=== PATIENT | male | born 1965 | race Caucasian/White ===

== ENCOUNTER 2022-07-25 10:13 | Outpatient (REF) | payer OTHER, SELFPAY ==
[2022-07-25 15:20] LABS: TSH reflex Free T4 1.36 uIU/mL (0.32-4.0); Vitamin D 25-OH Total < 3.5 ng/mL (>30)
== END 2022-07-25 10:14 | disposition home or self-care (01) ==
LOC: HO.WFDLDS 10:13
PROVIDERS: Visit Provider Nurse Practitioner Family
DX: Z00.00 Encounter for general adult medical examination without abnormal findings (principal); E55.9 Vitamin D deficiency, unspecified
CPT/HCPCS: 36415; 82306; 84443

== ENCOUNTER 2022-11-14 11:33 | Outpatient (REF) | payer OTHER, SELFPAY ==
[2022-11-14 14:48] LABS: Hematocrit 41.9 % (42.0-52.0); Hemoglobin 14.1 g/dl (14.0-18.0); Mean Corpuscular HGB Conc 33.7 g/dl (31.0-36.0); Mean Corpuscular Hemoglobin 31.7 pg (27.0-33.0); Mean Corpuscular Volume 94.2 fL (80.0-98.0); Mean Platelet Volume 10.8 fL (9.4-12.4); Platelet Count 284 X10*3/uL (160-400); Red Blood Count 4.45 X10*6/uL (4.60-5.80); Red Cell Distribution Width 13.2 % (11.0-16.0); White Blood Count 6.7 X10*3/uL (4.8-10.8)
[2022-11-14 15:43] LABS: Alanine Aminotransferase 18 U/L (0-40); Albumin Level 3.9 g/dL (3.5-5.0); Alkaline Phosphatase 85 U/L (39-117); Anion Gap 13 (12-20); Aspartate Amino Transferase 21 U/L (5-37); B Type Natriuretic Peptide 30 pg/mL (<100); Bilirubin Total 0.3 mg/dL (0.0-1.0); Blood Urea Nitrogen 14 mg/dL (9-16); Calcium 9.5 mg/dL (8.4-10.2); Carbon Dioxide 26 mmol/L (22-29); Chloride 105 mmol/L (96-108); Estimated Glomerular Filt Rate > 60; Glucose Fasting 118 mg/dL (60-99); Sodium 140 mmol/L (135-145); Total Protein 6.8 g/dL (6.5-8.0)
[2022-11-14 16:57] LABS: Vitamin D 25-OH Total 46.5 ng/mL (>30)
== END 2022-11-14 11:34 | disposition home or self-care (01) ==
LOC: HO.WFDLDS 11:33
PROVIDERS: Visit Provider Nurse Practitioner Family
DX: R60.0 Localized edema (principal); E55.9 Vitamin D deficiency, unspecified
CPT/HCPCS: 36415; 80053; 82306; 83880; 85027

== ENCOUNTER 2023-01-11 15:13 | Outpatient (AMB) | payer OTHER, SELFPAY ==
--- NOTE | 2023-01-11 15:17 | MHC.PC.OV ---
Vital Signs 01/11/23 15:20 Height 5 ft 3 in Weight 166 lb 8 oz BMI 29.5 BP 126/68 Blood Pressure Location Rt brachial Position Sitting Respiration 12 Pulse 101 H Pulse Source Pulse Oximeter Temp 97.6 F Temp Source Temporal Artery Scan Pulse Oximetry (%) 99 Oxygen Delivery Method Room Air Intake Visit Reasons: ? CHF Intake Note: Patient states that recently he was in bed watching tv and when he went to get up his legs gave out and he went straight down. Patient would like muscle relaxers represcribed due to his back pack pazin and issues. Fingerprint Technician Required: No Accompanied by: Self / Same As Patient Allergies No Known Allergies Allergy (Verified 01/11/23 15:38) Medication List - Last Reconciled 01/11/23 by Raffi Finney CNP aspirin 81 mg PO DAILY atorvastatin 40 mg PO DAILY buspirone 10 mg PO DAILY 30 days cholecalciferol (vitamin D3) 1,250 mcg PO QWEEK 8 weeks clopidogrel 75 mg PO DAILY 30 days cyclobenzaprine 10 mg PO TID PRN 30 days folic acid 1 mg PO DAILY furosemide 20 mg PO DAILY 7 days lisinopril 10 mg PO DAILY 30 days naproxen 500 mg PO BID PRN 30 days thiamine HCl (vitamin B1) 50 mg PO DAILY Tobacco use date assessed: 11/25/22 Dental Screening Dental Screen Date: 01/11/23 Did you have a dental visit in the last 12 months?: No Did you have a dental problem in the last 6 months where you did not have access to dental care?: No Was dental information given to patient?: Patient has dentist HPI HPI Comments History of Present Illness Details 57 y/o male presents for a follow up visit. He reports continued intermittent pain which is localized the right side of his lower back. He describes the pain as sharp He notes cyclobenzaprine provided the most relief. He admits to taking Naproxen as prescribed. He states she did 4 weeks of PT and stopped due to increased pain with PT. No tingling, numbness, or loss of sensation. He notes he has been smoking a 1 pack of cigarettes daily for the past 30 years. He requests nicotine patch for smoking cessation. He states he cut down on his drinking. He has been drinking 6 beers daily from 30 beers daily. [facility] Medical History (Updated 01/11/23 @ 15:52 by Raffi Finney CNP) Back injury Alcoholism Depression Anxiety Neuropathy Headache Osteoporosis Arthritis Cardiac disease Hypertension Stroke Surgical History No pertinent past surgical history Family History Mother Hypertension Cardiovascular disease Thyroid disorder Breast cancer No family history of mental disorder Father Cardiovascular disease Alcoholism High cholesterol Social History Housing: Apartment Patient Tobacco Use Status: Current everyday Tobacco user Tobacco use type: Cigarette Cigarette Packs Per Day: 1 Cigarettes Per Day: 20 Years Smoked: 30 e-Cigarette/Vaping Use: Currently Using service: Yes Current occupational status: retired and disabled Cognitive needs: No Hearing needs: No Vision needs: Yes Questionnaire Thrive Questionnaire Date Thrive assessed: 06/28/22 ALLEGRA-7 AMB Questionnaire ALLEGRA-7 Date ALLEGRA - 7 assessed: 06/28/22 Source: Developed by Drs. Irvin Solis, Pat Dang, John Khan and colleagues, with an educational ulysses from [employer]. Review of Systems Const Details: Const Denies chills, Denies fatigue, Denies fever(s), Denies headache(s) and Denies weakness ENT Denies dizziness and Denies headache(s) Card Denies chest pain, Denies lightheadedness, Denies dyspnea and Denies other (Palpitations) Resp Denies cough, Denies dyspnea, Denies wheezing and Denies other ( shortness of breath) GI Denies abdominal pain, Denies melena, Denies hematochezia, Denies change in bowel habits, Denies dyspepsia and Denies nausea Denies hematuria and Denies dysuria Musc Reports as per HPI Skin/Breast Denies rash, Denies unusual bruising and Denies wounds Neuro Denies abnormal gait, Denies dizziness, Denies headache(s), Denies memory loss, Denies numbness, Denies Sensory deficit (Neuro), Denies tingling and Denies weakness Psych Denies anxiety, Denies depression, Denies memory loss Endo Denies cold intolerance, Denies fatigue, Denies heat intolerance, Denies polydipsia and Denies polyuria Aller/Immun Denies wheezing Physical exam (Primary Care) Vital Signs: Last Vital Signs Temp 97.6 F 01/11/23 15:20 Pulse 101 H 01/11/23 15:20 Resp 12 01/11/23 15:20 BP 126/68 01/11/23 15:20 Pulse Ox 99 01/11/23 15:20 Oxygen Delivery Method Room Air 01/11/23 15:20 BMI result Body Mass Index 29.5 Tobacco/Smoking Status: Tobacco use Status Tobacco use date assessed 11/25/22 01/11/23 15:18 Patient Tobacco Use Status Current everyday Tobacco 01/11/23 15:18 Tobacco use type Cigarette 01/11/23 15:32 e-Cigarette/Vaping Use Currently Using 01/11/23 15:32 Thrive Assessment: Date of Thrive Assessment Date Thrive assessed 06/28/22 01/11/23 15:18 Const Other: General: no acute distress and well developed Nutritional Appearance: well nourished Orientation/consciousness: patient oriented x3 HENMT Head: Yes normocephalic and Yes atraumatic Eyes General: appearance normal, both eyes and all related structures Pupils: Equal, round and reactive pupils present EOM: EOMs intact bilaterally Resp Effort & Inspection: normal respiratory effort Auscultation: clear to auscultation bilaterally Cardio Rate: regular rate Rhythm: regular rhythm Heart sounds: S1 normal heart sound present, S2 normal heart sound present, no gallops, no murmurs and no rubs GI Palpation (GI): No Abdominal aortic bruit present, Soft to palpation, nontender, No hepatosplenomegaly present and No Rebound tenderness present Auscultation: normal bowel sounds General: Yes no CVA tenderness Back/Spine/Pelvis Back: no CVA tenderness Cervical Spine: cervical ROM normal and No Cervical spine tenderness Thoracic/Lumbar Spine: thoraco-lumbar ROM normal, No pain with thoraco-lumbar ROM, No thoracic spinal tenderness and No lumbar spinal tenderness Tenderness to palpation of the right side of lower back Extrem General: Yes normal to inspection, No edema and No calf tenderness Negative straight leg raise bilaterally Skin General: warm and dry. Normal skin color. Normal skin turgor Lesions: no lesions Rashes: no rashes Trauma: no lacerations or abrasions Wounds: no wounds Nails: normal Neuro General: patient oriented x3, gait normal and no focal neuro deficit Cranial nerves: Yes Equal, round and reactive pupils present Cognition (Neuro): normal cognition Gait exam (Neuro): Normal gait present Sensory Exam: No Sensory deficit (Neuro) Psych Appearance: grossly normal Affect: normal affect Attitude: cooperative Thought process: Normal thought process present Assessment and Plan Assessment & Plan (1) Hypertension: Code(s): I10 - Essential (primary) hypertension Qualifiers: Hypertension type: primary hypertension Qualified Code(s): I10 - Essential (primary) hypertension Plan: Blood pressure is 126/68, within goal of less than 140/90 Continue with current treatment regimen Low-sodium diet encouraged Follow-up in 1 month for complete physical exam Return sooner with symptoms or concerns Verbalized understanding and agreed with treatment plan. Recent lab results were unremarkable. (2) Back pain: Code(s): M54.9 - Dorsalgia, unspecified Qualifiers: Back pain laterality: right Back pain location: low back pain Plan: Reports ongoing intermittent right-sided low back pain. No tingling or numbness Tenderness to palpation of the right side of lower back Naproxen and cyclobenzaprine as prescribed Cold/warm compresses, and stretching encouraged Follow-up with worsening or new symptoms Verbalized understanding and agreed with treatment plan. (3) Smoking trying to quit: Code(s): Z72.0 - Tobacco use Plan: He notes he has been smoking a 1 pack of cigarettes daily for the past 30 years. He requests nicotine patch for smoking cessation. Nicotine patch ordered. Use as prescribed Follow-up with symptoms or concerns Verbalized understanding and agreed with treatment plan. (4) Alcohol abuse: Code(s): F10.10 - Alcohol abuse, uncomplicated Plan: He states he cut down on his drinking. He has been drinking 6 beers daily from 30 beers daily. Instructed on the health risks and complications of excessive alcohol consumption Encouraged to cut down more or avoid alcohol intake Declines addiction medicine referral Advised to follow-up if he changes his mind on addiction medicine referral Verbalized understanding and agreed with treatment plan. Medications: New nicotine Apply 21 mh patch qd x 6wk, then apply 14 mg patch qd x 2wk, then apply 7 mg patch qd x 2wk; stop cigarette use at tx onset Apply transdermally every 24 hours; 28 ea 0RF Refilled cyclobenzaprine 10 mg PO TID 30 days PRN 60 tabs 2RF muscle spasm Coding Level of Care Code Est Pt Level 3 (72122) Diagnoses Primary hypertension I10 Hypertension type: primary hypertension Back pain M54.9 Back pain laterality: right Back pain location: low back pain Smoking trying to quit Z72.0 Alcohol abuse F10.10
[2023-01-11 15:20] VITALS: BP 126/68; PULSE 101; RESP 12; TEMP 36.4; O2SAT 99; BMI 29.5
== END 2023-01-11 15:50 | disposition home or self-care (01) ==
PROVIDERS: PCP Nurse Practitioner Family; Visit Provider Nurse Practitioner Family
DX: I10 Essential (primary) hypertension (principal); M54.9 Dorsalgia, unspecified; Z72.0 Tobacco use; F10.10 Alcohol abuse, uncomplicated
CPT/HCPCS: 99213

== ENCOUNTER 2023-05-08 08:35 | Outpatient (AMB) | payer OTHER, SELFPAY ==
[2023-05-08 08:37] VITALS: BP 132/70; PULSE 93; RESP 13; TEMP 36.3; O2SAT 96; BMI 31.3
--- NOTE | 2023-05-08 08:37 | MHC.PC.OV ---
Vital Signs 05/08/23 08:37 Height 5 ft 3 in Weight 176 lb 8 oz BMI 31.3 BP 132/70 Blood Pressure Location Rt brachial Position Sitting Respiration 13 Pulse 93 Pulse Source Pulse Oximeter Temp 97.3 F Temp Source Temporal Artery Scan Pulse Oximetry (%) 96 Oxygen Delivery Method Room Air Intake Visit Reasons: PE Intake Note: Patient would like to get warts on hand removed. Patient needs new script sent in for cyclobenzaprine. Train Operator Required: No Accompanied by: Self / Same As Patient Allergies No Known Allergies Allergy (Verified 05/08/23 08:55) Medication List - Last Reconciled 05/08/23 by Raffi Finney CNP aspirin 81 mg PO DAILY atorvastatin 40 mg PO DAILY buspirone 10 mg PO DAILY 30 days cholecalciferol (vitamin D3) 1,250 mcg PO QWEEK 8 weeks clopidogrel 75 mg PO DAILY 30 days cyclobenzaprine 10 mg PO TID PRN 30 days folic acid 1 mg PO DAILY furosemide 20 mg PO DAILY 7 days lisinopril 10 mg PO DAILY 30 days naproxen 500 mg PO BID PRN 30 days nicotine Apply 21 mh patch qd x 6wk, then apply 14 mg patch qd x 2wk, then apply 7 mg patch qd x 2wk; stop cigarette use at tx onset Apply transdermally every 24 hours; thiamine HCl (vitamin B1) 50 mg PO DAILY Tobacco use date assessed: 05/08/23 Dental Screening Dental Screen Date: 05/08/23 Did you have a dental visit in the last 12 months?: No Did you have a dental problem in the last 6 months where you did not have access to dental care?: No Was dental information given to patient?: Patient has dentist HPI HPI Comments History of Present Illness Details 57-year-old male presents for an extended physical exam He has history of HTN, HLD, right-sided low back pain, tobacco dependence, alcohol abuse, alcohol withdrawal seizure, polysubstance abuse, anxiety, and depression He admits to taking his medication as prescribed without adverse reactions He reports continued persistent right-sided low back pain which waxes and wanes. He notes that he had PT a couple of months ago with worsened symptoms. He has not been evaluated by ortho He reports warts to his left thumb and tip of his left 3rd and 4th digits which has been presents for the past 5 years. He wants the warts to be removed Reports significant anxiety and depression which he attributes to not physically being able to do what he used to do. He notes I am not younger anymore. He currently smokes a pack of cigarettes daily. He has been smoking for the past 40 years He currently drinks 2 beers once weekly He currently smokes 1 joint or 2 bowls of marijuana once weekly He notes that he has never had a colonoscopy He states he has not been vaccinated for shingles [facility] Medical History (Updated 05/08/23 @ 10:22 by Raffi Finney CNP) Back injury Alcoholism Depression Anxiety Neuropathy Headache Osteoporosis Arthritis Cardiac disease Hypertension Stroke Surgical History No pertinent past surgical history Family History Mother Hypertension Cardiovascular disease Thyroid disorder Breast cancer No family history of mental disorder Father Cardiovascular disease Alcoholism High cholesterol Social History Housing: Apartment Patient Tobacco Use Status: Current everyday Tobacco user Tobacco use type: Cigarette Cigarette Packs Per Day: 1 Cigarettes Per Day: 20 Years Smoked: 30 e-Cigarette/Vaping Use: Former Use service: Yes Current occupational status: disabled Cognitive needs: No Hearing needs: Yes Vision needs: Yes Questionnaire PHQ-9 Over the last 2 weeks, how often have you been bothered by any of the following problems? 1. Little interest or pleasure in doing things: nearly every day 2. Feeling down, depressed, or hopeless: several days 3. Trouble falling or staying asleep, or sleeping too much: nearly every day 4. Feeling tired or having little energy: nearly every day 5. Poor appetite or overeating: nearly every day 6. Feeling bad about yourself - or that you are a failure or have let yourself or your family down: more than half the days 7. Trouble concentrating on things, such as reading the newspaper or watching television: nearly every day 8. Moving or speaking so slowly that other people could have noticed. Or the opposite - being so fidgety or restless that you have been moving around a lot more than usual: nearly every day 9. Thoughts that you would be better off or of hurting yourself in some way: not at all Total score: 21 Depression Screening Interpretation: Positive Depression Screening Follow-up: Existing condition, In treatment and New Medication prescribed Depression Screening Done: Yes 45972 - PHQ-9 Billing: Yes Source: Developed by Drs. Irvin Solis, Pat Dang, John Khan and colleagues, with an educational ulysses from [employer]. Thrive Questionnaire Date Thrive assessed: 05/08/23 I am a: Patient What is your living situation today?: I have a steady place to live Within the past 12 months, did the food you bought not last and you didn't have the money to get more?: Sometimes True Within the past 12 months, did you worry whether your food would run out before you got money to buy more?: Sometimes True Do you have trouble paying for medicines?: No Do you have trouble getting transportation to medical appointments?: Yes Do you have trouble paying your heating and electricity bill?: No Do you have trouble taking care of your child, family member or friend?: No Do you have trouble with day-to-day activities such as bathing, preparing meals, shopping, managing finances, etc.?: No Are you currently unemployed and looking for a job?: No Are you interested in more education?: No Please select the resources that you would like help with: None Currently or been in a relationship where the following occur: no concerns reported AUDIT C Alcohol Use Questionnaire (AUDIT-C) 1. How often do you have a drink containing alcohol?: 2-3 times a week 2. How many drinks containing alcohol do you have on a typical day when you are drinking?: 1 or 2 3. How often do you have six or more drinks on one occasion?: Monthly Total Score: 5 ALLEGRA-7 AMB Questionnaire ALLEGRA-7 Date ALLEGRA - 7 assessed: 05/08/23 Feeling nervous, anxious, or on edge: 2 = More than half the days Not being able to stop or control worryin = More than half the days Worrying too much about different things: 3 = Nearly every day Trouble relaxin = Nearly every day Being so restless that it is hard to sit still: 3 = Nearly every day Becoming easily annoyed or irritable: 2 = More than half the days Feeling afraid as if something awful might happen: 1 = Several days Total ALLEGRA-7 score (0-4 normal; 5-9 mild; 10-14 moderate; 15-21 severe): 16 Source: Developed by Drs. Irvin Solis, Pat Dang, John Khan and colleagues, with an educational ulysses from [employer]. ALLEGRA-7 Assessment Billing ALLEGRA-7 Assessment Tool: ALLEGRA-7 Assessment 90801 Review of Systems Const Details: Denies chills, Denies fatigue, Denies fever(s), Denies headache(s) and Denies weakness HEENT Denies change in vision, Denies dizziness, Denies headache(s), Denies hearing loss, Denies nasal congestion, Denies sinus pain, Denies sinus pressure and Denies sore throat Card Denies chest pain, Denies lightheadedness, Denies dyspnea and Denies other (palpitations) Resp Denies cough, Denies dyspnea and Denies wheezing GI Denies abdominal pain, Denies melena, Denies hematochezia, Denies change in bowel habits, Denies dyspepsia and Denies nausea Denies hematuria and Denies dysuria Musc Denies abnormal gait, Denies myalgias, Denies arthralgias, Denies numbness and Denies tingling Skin/Breast Reports as per HPI Neuro Denies abnormal gait, Denies dizziness, Denies headache(s), Denies memory loss, Denies numbness, Denies Sensory deficit (Neuro), Denies tingling and Denies weakness Psych Reports anxiety, Reports depression and Denies memory loss Endo Denies cold intolerance, Denies fatigue, Denies heat intolerance, Denies polydipsia and Denies polyuria Prince/Lymph Denies easy bleeding and Denies easy bruising Aller/Immun Denies wheezing Physical exam (Primary Care) Vital Signs: Last Vital Signs Temp 97.3 F 05/08/23 08:37 Pulse 93 05/08/23 08:37 Resp 13 05/08/23 08:37 BP 132/70 05/08/23 08:37 Pulse Ox 96 05/08/23 08:37 Oxygen Delivery Method Room Air 05/08/23 08:37 BMI result Body Mass Index 31.3 Tobacco/Smoking Status: Tobacco use Status Tobacco use date assessed 11/25/22 05/08/23 08:51 Patient Tobacco Use Status Current everyday Tobacco 05/08/23 08:51 Tobacco use type Cigarette 05/08/23 08:51 e-Cigarette/Vaping Use Former Use 05/08/23 08:51 PHQ-9: PHQ-9 Score PHQ-9: Total score 21 05/08/23 08:58 Depression Screening Interpretation: Positive Depression Screening Follow-up: Existing condition, In treatment and New Medication prescribed Thrive Assessment: Date of Thrive Assessment Date Thrive assessed 05/08/23 05/08/23 08:51 Currently or been in a relationship where the following occur: no concerns reported Const Other: General: no acute distress, well developed, alert and awake Nutritional Appearance: well nourished Orientation/consciousness: patient oriented x3 HENMT Head: Yes normocephalic and Yes atraumatic Ears: hearing grossly normal bilaterally and TM's normal bilaterally General nose exam: Normal external nose present and Normal nares present Mouth: Normal oral and palatal mucosa present and moist mucous membranes Teeth and gingiva: dentition normal Throat: Yes oropharynx normal Eyes Pupils: Equal, round and reactive pupils present and Pupil accommodation reflex normal EOM: EOMs intact bilaterally Neck Neck: Yes normal visual inspection, Yes no lymphadenopathy and Yes trachea midline Thyroid: Thyroid normal Carotids: no bruits Lymphatic: no lymphadenopathy noted Chest Chest palpation & inspection: normal inspection of the chest Resp Effort & Inspection: normal respiratory effort Auscultation: clear to auscultation bilaterally Cardio Rate: regular rate Rhythm: regular rhythm Heart sounds: S1 normal heart sound present, S2 normal heart sound present, no gallops, no murmurs and no rubs Bruits: no abdominal aortic bruits and no carotid bruits GI Palpation (GI): No Abdominal aortic bruit present, Soft to palpation, nontender, No hepatosplenomegaly present and No Rebound tenderness present Auscultation: normal bowel sounds General: Yes no CVA tenderness Back/Spine/Pelvis Back: no CVA tenderness Cervical Spine: cervical ROM normal and No Cervical spine tenderness Thoracic/Lumbar Spine: thoraco-lumbar ROM normal, No pain with thoraco-lumbar ROM, No thoracic spinal tenderness and No lumbar spinal tenderness Skin General: warm and dry. Normal skin color. Normal skin turgor Lesions: Very dry, calloused skin, consistent with wart to his to his left thumb and tip of left 3rd and 4th digits Rashes: no rashes Trauma: no lacerations or abrasions Wounds: no wounds Nails: normal Neuro General: patient oriented x3, gait normal and CN's II-XI intact bilaterally Cranial nerves: Yes Equal, round and reactive pupils present Cognition (Neuro): normal cognition Gait exam (Neuro): Normal gait present Motor exam (neuro): 5/5 motor strength present throughout Sensory Exam: No Sensory deficit (Neuro) Deep tendon reflexes (DTR's): Right patellar reflex intensity grade: 2+ and Left patellar reflex intensity grade: 2+ Extrem General: Yes normal to inspection, No edema and No calf tenderness Psych Appearance: grossly normal Affect: normal affect Attitude: cooperative Thought process: Normal thought process present Assessment and Plan Assessment & Plan (1) Normal physical examination, routine: Code(s): Z00.00 - Encounter for general adult medical examination without abnormal findings Plan: No significant physical restrictions or limitations noted Continue current treatment regimen Follow-up in 2 weeks for anxiety, depression, and labs review Return sooner with symptoms or concerns Verbalized understanding and agreed with treatment plan (2) Hypertension: Code(s): I10 - Essential (primary) hypertension Qualifiers: Hypertension type: primary hypertension Qualified Code(s): I10 - Essential (primary) hypertension Plan: Blood pressure is 132/70, within goal of less than 130/80 Continue current treatment regimen Low-sodium diet encouraged Will continue to monitor Verbalized understanding and agreed with treatment plan (3) Anxiety and depression: Code(s): F41.9 - Anxiety disorder, unspecified; F32.A - Depression, unspecified Plan: Significant anxiety and depression due to not been able to physically get things done PHQ-9 and ALLEGRA-7 scores revealed severe depression and anxiety Declines referral for psychotherapy Escitalopram ordered. Take as prescribed Continue to take buspirone as prescribed Routine exercise encouraged Follow-up in 2 weeks or return sooner with symptoms or concerns Verbalized understanding and agreed with treatment plan (4) Back pain: Code(s): M54.9 - Dorsalgia, unspecified Qualifiers: Back pain location: low back pain Back pain laterality: right Plan: Chronic right-sided low back pain Thoracic and lumbar spine nontender to palpation Naproxen and cyclobenzaprine as prescribed Warm/cold compresses encouraged Physical therapy was ineffective Referred to orthopedics Follow-up with worsening or new symptoms Verbalized understanding and agreed with treatment plan (5) Prediabetes: Code(s): R73.03 - Prediabetes Plan: Last A1c early last year was 5.8% Healthy diet and routine exercise encouraged Will recheck A1c Advised to get blood work done before his next visit. Will review results and make changes as needed Verbalized understanding and agreed with the treatment plan (6) Smoking greater than 30 pack years: Code(s): F17.210 - Nicotine dependence, cigarettes, uncomplicated Plan: He currently smokes a pack of cigarettes daily. He has been smoking for the past 40 years Instructed on the health risks and complications of cigarette smoking He was not nicotine patch and was unable to stop smoking Smoking cessation encouraged Declines medication treatment or referral for smoking cessation at this time Advised to contact his PCP if he changes his mind on medication or referral for smoking cessation LDCT scan ordered for lung cancer screening Verbalized understanding and agreed with the plan (7) Screening for lung cancer: Code(s): Z12.2 - Encounter for screening for malignant neoplasm of respiratory organs Plan: As above (8) Colon cancer screening: Code(s): Z12.11 - Encounter for screening for malignant neoplasm of colon Plan: He never had a colonoscopy Referred to [facility] [place] Gastroenterology for colonoscopy (9) Hyperlipidemia: Code(s): E78.5 - Hyperlipidemia, unspecified Qualifiers: Hyperlipidemia type: unspecified Qualified Code(s): E78.5 - Hyperlipidemia, unspecified Plan: He has not had lipid panel blood work done in a while Will recheck lipid panel level. Advised to fast for 10-12 hours, may drink water only, and get blood work done before his next visit Continue to take atorvastatin as prescribed Routine exercise encouraged Follow-up in 2 weeks Verbalized understanding and agreed with treatment plan (10) Wart of hand: Code(s): B07.9 - Viral wart, unspecified Plan: Reports warts to his left thumb and tip of his left 3rd and 4th digits x 5 years Very dry, calloused skin, consistent with wart to his to his left thumb and tip of left 3rd and 4th digits Referred to dermatology (11) Vaccine counseling: Code(s): Z71.85 - Encounter for immunization safety counseling Plan: He has not been vaccinated for shingles Instructed on importance of vaccinations and encouraged to get vaccination for shingles Verbalized understanding and agreed with the plan Orders: Orders PSA, Ultra Sensitive Today Z00.00 - Encounter for general adult medical examination without abnormal findings Lipid Panel Today Z00.00 - Encounter for general adult medical examination without abnormal findings Hemoglobin A1c Today R73.03 - Prediabetes Vitamin D 25-OH Total Today E55.9 - Vitamin D deficiency, unspecified Referrals Orthopedics Referral M54.9 - Dorsalgia, unspecified Dermatology Referral B07.9 - Viral wart, unspecified Medications: New escitalopram oxalate 10 mg PO DAILY 30 tabs 3RF 30 days Changed From atorvastatin 40 mg PO DAILY To atorvastatin 40 mg PO DAILY 90 tabs 1RF 90 days Refilled buspirone 10 mg PO DAILY 30 tabs 3RF 30 days clopidogrel 75 mg PO DAILY 30 tabs 3RF 30 days cyclobenzaprine 10 mg PO TID PRN 60 tabs 2RF muscle spasm 30 days naproxen 500 mg PO BID PRN 60 tabs 1RF pain 30 days lisinopril 10 mg PO DAILY 30 tabs 4RF 30 days Discontinued cholecalciferol (vitamin D3) Discontinued Reason: Doctor's Order 1,250 mcg PO QWEEK 8 caps 0RF 8 weeks nicotine Discontinued Reason: Doctor's Order Apply 21 mh patch qd x 6wk, then apply 14 mg patch qd x 2wk, then apply 7 mg patch qd x 2wk; stop cigarette use at tx onset Apply transdermally every 24 hours; 28 ea 0RF furosemide Discontinued Reason: Patient no longer taking 20 mg PO DAILY 7 days 7 tabs 0RF Coding Level of Care Code Est Pt Level 3 (03758) Est Pt Prev Care 40-64y(51774) Diagnoses Normal physical examination, routine Z00.00 Primary hypertension I10 Hypertension type: primary hypertension Anxiety and depression F41.9; F32.A Back pain M54.9 Back pain location: low back pain Back pain laterality: right Prediabetes R73.03 Smoking greater than 30 pack years F17.210 Screening for lung cancer Z12.2 Colon cancer screening Z12.11 Hyperlipidemia, unspecified hyperlipidemia type E78.5 Hyperlipidemia type: unspecified Wart of hand B07.9 Vaccine counseling Z71.85 Additional Codes ALLEGRA-7 Assessment Billing - ALLEGRA-7 Assessment Tool: ALLEGRA-7 Assessment [id number] ([id number])
== END 2023-05-08 09:22 | disposition home or self-care (01) ==
PROVIDERS: PCP Nurse Practitioner Family; Visit Provider Nurse Practitioner Family
DX: Z00.00 Encounter for general adult medical examination without abnormal findings (principal); I10 Essential (primary) hypertension; F41.9 Anxiety disorder, unspecified; F32.A Depression, unspecified; M54.9 Dorsalgia, unspecified; R73.03 Prediabetes; F17.210 Nicotine dependence, cigarettes, uncomplicated; Z12.2 Encounter for screening for malignant neoplasm of respiratory organs; Z12.11 Encounter for screening for malignant neoplasm of colon; E78.5 Hyperlipidemia, unspecified; B07.9 Viral wart, unspecified; Z71.85 Encounter for immunization safety counseling
CPT/HCPCS: 96127; 99213; 99396

== ENCOUNTER 2023-11-28 12:04 | Outpatient (REF) | payer OTHER, SELFPAY ==
[2023-11-28 17:10] LABS: Estimated Average Glucose 105 mg/dL; Hemoglobin A1c % 5.3 % (<6.0)
[2023-11-28 18:26] LABS: Cholesterol 181 mg/dL (<200); HDL Cholesterol 73 mg/dL (>40); LDL Cholesterol Calculated 98 mg/dL (<100); Triglycerides 52 mg/dL (<150)
[2023-11-28 18:34] LABS: Vitamin D 25-OH Total 20.1 ng/mL (>30)
[2023-12-08 00:43] LABS: PSA, Ultra Sensitive 1.31 ng/mL
== END 2023-11-28 12:05 | disposition home or self-care (01) ==
LOC: HO.WFDLDS 12:04
PROVIDERS: Visit Provider Nurse Practitioner Family
DX: R73.03 Prediabetes (principal); Z00.00 Encounter for general adult medical examination without abnormal findings; E55.9 Vitamin D deficiency, unspecified; Z12.5 Encounter for screening for malignant neoplasm of prostate
CPT/HCPCS: 36415; 80061; 82306; 83036; 84153

== ENCOUNTER 2023-12-12 10:17 | Outpatient (AMB) | payer OTHER, SELFPAY ==
--- NOTE | 2023-12-12 10:19 | MHC.PC.OV ---
Vital Signs 12/12/23 10:26 Height 5 ft 3 in Weight 155 lb BMI 27.5 BP 102/72 Blood Pressure Location Rt brachial Position Sitting Respiration 14 Pulse 88 Pulse Source Pulse Oximeter Pulse Oximetry (%) 93 Oxygen Delivery Method Room Air Intake Visit Reasons: follow up anxiety, depression and labs Intake Note: Follow up anxiety, depression, lab results. Allergies No Known Allergies Allergy (Verified 12/12/23 10:36) Medication List - Last Reconciled 12/12/23 by Raffi Finney CNP aspirin 81 mg PO DAILY atorvastatin 40 mg PO DAILY 90 days buspirone 10 mg PO DAILY 30 days cholecalciferol (vitamin D3) 50 mcg PO DAILY 30 days clopidogrel 75 mg PO DAILY 30 days cyclobenzaprine 10 mg PO TID PRN 30 days escitalopram oxalate 10 mg PO DAILY 30 days folic acid 1 mg PO DAILY lisinopril 10 mg PO DAILY 30 days naproxen 500 mg PO BID PRN 30 days thiamine HCl (vitamin B1) 50 mg PO DAILY Tobacco use date assessed: 12/12/23 Dental Screening Dental Screen Date: 05/08/23 HPI HPI Comments History of Present Illness Details 58-year-old male presents for anxiety, depression, and review of recent lab results follow-up His last office visit was in May 2023 He admits to taking his medications as prescribed without adverse reactions He notes that his anxiety and depressive symptoms are currently alright. He reports passive SI related to how my past could have been different. He denies active SI or suicide plan. He denies HI. He reports chronic constant sharp LBP. He denies radiation, tingling, numbness, or loss of sensation. He requests refill of cyclobenzaprine and Naproxen. He reports h/o PT for his back pain with worsened symptoms. He states that he had xray, CT, and MR for his lumbar spin at [facility] but does not recall the findings. He notes that he has never been evaluated by ortho for his back pain. [facility] Medical History (Updated 09/19/23 @ 10:57 by Chuyita Jane PA-C) History of CVA (cerebrovascular accident) History of seizure due to alcohol withdrawal Alcohol abuse PFO (patent foramen ovale) Hypertension Hyperlipidemia Nicotine dependence, cigarettes, uncomplicated Back injury Depression Anxiety Neuropathy Headache Osteoporosis Arthritis Surgical History (Updated 09/19/23 @ 10:58 by Chuyita Jane PA-C) History of surgery on wrist History of ankle surgery Family History Mother Hypertension Cardiovascular disease Thyroid disorder Breast cancer No family history of mental disorder Father Cardiovascular disease Alcoholism High cholesterol Social History Housing: Apartment Patient Tobacco Use Status: Current everyday Tobacco user Tobacco use type: Cigarette Cigarette Packs Per Day: 1 Cigarettes Per Day: 20 Years Smoked: 40 e-Cigarette/Vaping Use: Former Use service: Yes Current occupational status: disabled Cognitive needs: No Hearing needs: Yes Vision needs: Yes Questionnaire PHQ-9 Over the last 2 weeks, how often have you been bothered by any of the following problems? 1. Little interest or pleasure in doing things: more than half the days 2. Feeling down, depressed, or hopeless: more than half the days 3. Trouble falling or staying asleep, or sleeping too much: more than half the days 4. Feeling tired or having little energy: several days 5. Poor appetite or overeating: several days 6. Feeling bad about yourself - or that you are a failure or have let yourself or your family down: several days 7. Trouble concentrating on things, such as reading the newspaper or watching television: several days 8. Moving or speaking so slowly that other people could have noticed. Or the opposite - being so fidgety or restless that you have been moving around a lot more than usual: nearly every day 9. Thoughts that you would be better off or of hurting yourself in some way: several days Total score: 14 Depression Screening Interpretation: Positive Depression Screening Follow-up: Existing condition and In treatment Depression Screening Done: Yes 49418 - PHQ-9 Billing: Yes Source: Developed by Drs. Irvin Solis, Pat Dang, John Khan and colleagues, with an educational ulysses from [employer]. Thrive Questionnaire Date Thrive assessed: 05/08/23 ALLEGRA-7 AMB Questionnaire ALLEGRA-7 Date ALLEGRA - 7 assessed: 12/12/23 Feeling nervous, anxious, or on edge: 1 = Several days Not being able to stop or control worryin = Several days Worrying too much about different things: 1 = Several days Trouble relaxin = More than half the days Being so restless that it is hard to sit still: 1 = Several days Becoming easily annoyed or irritable: 1 = Several days Feeling afraid as if something awful might happen: 1 = Several days Total ALLEGRA-7 score (0-4 normal; 5-9 mild; 10-14 moderate; 15-21 severe): 8 Source: Developed by Drs. Irvin Solis, Pat Dang, John Khan and colleagues, with an educational ulysses from [employer]. ALLEGRA-7 Assessment Billing ALLEGRA-7 Assessment Tool: ALLEGRA-7 Assessment [id number] Review of Systems Const Details: Const Denies chills, Denies fatigue, Denies fever(s), Denies headache(s) and Denies weakness ENT Denies dizziness and Denies headache(s) Card Denies chest pain, Denies lightheadedness, Denies dyspnea and Denies other (Palpitations) Resp Denies cough, Denies dyspnea, Denies wheezing and Denies other ( shortness of breath) GI Denies abdominal pain, Denies melena, Denies hematochezia, Denies change in bowel habits, Denies dyspepsia and Denies nausea Denies hematuria and Denies dysuria Musc Reports as per HPI Skin/Breast Denies rash, Denies unusual bruising and Denies wounds Neuro Denies abnormal gait, Denies dizziness, Denies headache(s), Denies memory loss, Denies numbness, Denies Sensory deficit (Neuro), Denies tingling and Denies weakness Psych Denies anxiety, Denies depression, Denies memory loss Endo Denies cold intolerance, Denies fatigue, Denies heat intolerance, Denies polydipsia and Denies polyuria Aller/Immun Denies wheezing Physical exam (Primary Care) Tobacco/Smoking Status: Tobacco use Status Tobacco use date assessed 05/08/23 12/12/23 10:21 Patient Tobacco Use Status Current everyday Tobacco 12/12/23 10:21 Tobacco use type Cigarette 12/12/23 10:21 e-Cigarette/Vaping Use Former Use 12/12/23 10:21 Depression Screening Interpretation: Positive Depression Screening Follow-up: Existing condition and In treatment Thrive Assessment: Date of Thrive Assessment Date Thrive assessed 05/08/23 12/12/23 10:21 Const Other: General: no acute distress and well developed Nutritional Appearance: well nourished Orientation/consciousness: patient oriented x3 HENMT Head: Yes normocephalic and Yes atraumatic Eyes General: appearance normal, both eyes and all related structures Pupils: Equal, round and reactive pupils present EOM: EOMs intact bilaterally Resp Effort & Inspection: normal respiratory effort Auscultation: clear to auscultation bilaterally Cardio Rate: regular rate Rhythm: regular rhythm Heart sounds: S1 normal heart sound present, S2 normal heart sound present, no gallops, no murmurs and no rubs GI Palpation (GI): No Abdominal aortic bruit present, Soft to palpation, nontender, No hepatosplenomegaly present and No Rebound tenderness present Auscultation: normal bowel sounds General: Yes no CVA tenderness Back/Spine/Pelvis Back: no CVA tenderness Cervical Spine: cervical ROM normal and No Cervical spine tenderness Thoracic/Lumbar Spine: thoraco-lumbar ROM normal, No pain with thoraco-lumbar ROM, No thoracic spinal tenderness and No lumbar spinal tenderness Extrem General: Yes normal to inspection, No edema and No calf tenderness Skin General: warm and dry. Normal skin color. Normal skin turgor Neuro General: patient oriented x3, gait normal and no focal neuro deficit Cranial nerves: Yes Equal, round and reactive pupils present Cognition (Neuro): normal cognition Gait exam (Neuro): Normal gait present Sensory Exam: No Sensory deficit (Neuro) Psych Appearance: grossly normal Affect: normal affect Attitude: cooperative Thought process: Normal thought process present Assessment and Plan Assessment & Plan (1) Anxiety and depression: Code(s): F41.9 - Anxiety disorder, unspecified; F32.A - Depression, unspecified Plan: No acute symptoms PHQ-9 and ALLEGRA-7 scores revealed moderate depression and mild anxiety respectively Continue current treatment regimen Routine exercise encouraged Follow-up in 3 months or sooner with symptoms or concerns Verbalized understanding and agreed with treatment plan (2) Prediabetes: Code(s): R73.03 - Prediabetes Plan: Recent lab results on 11/28/2023 reviewed with the patient A1c was 5.3% Healthy diet and routine exercise encouraged Will monitor A1c annually or if clinically indicated Verbalized understanding and agreed with the plan (3) Hyperlipidemia: Code(s): E78.5 - Hyperlipidemia, unspecified Qualifiers: Hyperlipidemia type: unspecified Qualified Code(s): E78.5 - Hyperlipidemia, unspecified Plan: Recent lipid panel levels were normal, triglycerides 52, total cholesterol 181, LDL 98, and HDL 73 Continue to take atorvastatin 40 mg daily Advised to limit foods high in saturated fat and avoid foods high in trans fat Routine exercise encouraged Will recheck lipid panel level. Advised to fast for 10-12 hours, may drink water only, and get blood work done before his next visit Verbalized understanding and agreed with treatment plan (4) Hypertension: Code(s): I10 - Essential (primary) hypertension Qualifiers: Hypertension type: primary hypertension Qualified Code(s): I10 - Essential (primary) hypertension Plan: His blood pressure is 102/70, within goal of less than 140/90 Continue current treatment regimen Low-sodium diet encouraged Follow-up in 3 months Verbalized understanding and agreed with the treatment plan (5) Vitamin D deficiency: Code(s): E55.9 - Vitamin D deficiency, unspecified Plan: Recent vitamin-D level was low, 20.1 Will start vitamin D3 2000 units daily. Advised to take as prescribed. Instructed on the risks, benefits, and potential adverse reactions of the medication Encouraged to get vitamin-D level blood work done before his next visit Follow-up in 3 months Verbalized understanding and agreed with the treatment plan (6) Back pain: Code(s): M54.9 - Dorsalgia, unspecified Qualifiers: Back pain location: low back pain Back pain laterality: right Plan: Chronic pain to his lumbar spine Lumbar spine nontender to palpation Naproxen and cyclobenzaprine refill sent Warm/cool compresses encouraged Will request imaging of the lumbar spine from [facility] Follow-up with worsening or new symptoms Verbalized understanding and agreed with the treatment plan Orders: Orders Vitamin D 25-OH Total 3 Months E55.9 - Vitamin D deficiency, unspecified Lipid Panel 3 Months E78.5 - Hyperlipidemia, unspecified Medications: New cholecalciferol (vitamin D3) 50 mcg PO DAILY 30 days 30 tabs 3RF Changed From cyclobenzaprine 10 mg PO TID 30 days PRN 60 tabs 2RF muscle spasm To cyclobenzaprine 10 mg PO BID 30 days PRN 60 tabs 2RF muscle spasm Refilled naproxen 500 mg PO BID 30 days PRN 60 tabs 1RF pain escitalopram oxalate 10 mg PO DAILY 30 days 30 tabs 3RF Coding Level of Care Code Est Pt Level 4 (13109) Complex EM visit Add On G2211 Diagnoses Anxiety and depression F41.9; F32.A Prediabetes R73.03 Hyperlipidemia, unspecified hyperlipidemia type E78.5 Hyperlipidemia type: unspecified Primary hypertension I10 Hypertension type: primary hypertension Vitamin D deficiency E55.9 Back pain M54.9 Back pain location: low back pain Back pain laterality: right Additional Codes ALLEGRA-7 Assessment Billing - ALLEGRA-7 Assessment Tool: ALLEGRA-7 Assessment [id number] ([id number])
[2023-12-12 10:26] VITALS: BP 102/72; PULSE 88; RESP 14; O2SAT 93; BMI 27.5
== END 2023-12-12 10:53 | disposition home or self-care (01) ==
PROVIDERS: PCP Nurse Practitioner Family; Visit Provider Nurse Practitioner Family
DX: F41.9 Anxiety disorder, unspecified (principal); F32.A Depression, unspecified; R73.03 Prediabetes; E78.5 Hyperlipidemia, unspecified; I10 Essential (primary) hypertension; E55.9 Vitamin D deficiency, unspecified; M54.9 Dorsalgia, unspecified
CPT/HCPCS: 96127; 99214; G2211

== ENCOUNTER 2024-09-30 11:59 | Outpatient (AMB) | payer MEDICARE, MEDICAID, SELFPAY ==
--- NOTE | 2024-09-30 12:01 | A.OFFPC_ITS ---
Vital Signs 09/30/24 12:06 Height 5 ft 3 in Weight 171 lb BMI 30.3 BP 127/72 Blood Pressure Location Lt brachial Position Sitting Respiration 16 Pulse 113 H Pulse Source Pulse Oximeter Temp 97.5 F Temp Source Oral Pulse Oximetry (%) 98 Oxygen Delivery Method Room Air Intake Visit Reasons: CPE Intake Note: patient here for CPE Administrative Services Assistant Required: No Allergies No Known Allergies Allergy (Verified 09/30/24 12:30) Medication List - Last Reconciled 09/30/24 by Raffi Finney CNP aspirin 81 mg PO DAILY atorvastatin 40 mg PO DAILY 90 days buspirone 10 mg PO DAILY 30 days cholecalciferol (vitamin D3) 50 mcg PO DAILY 30 days clopidogrel 75 mg PO DAILY 30 days cyclobenzaprine 10 mg PO BID PRN 30 days escitalopram oxalate 10 mg PO DAILY 30 days folic acid 1 mg PO DAILY lisinopril 10 mg PO DAILY 30 days naproxen 500 mg PO BID PRN 30 days thiamine HCl (vitamin B1) 50 mg PO DAILY Tobacco use date assessed: 09/30/24 Dental Screening Dental Screen Date: 09/30/24 Did you have a dental visit in the last 12 months?: No Did you have a dental problem in the last 6 months where you did not have access to dental care?: No Was dental information given to patient?: Patient has dentist HPI HPI Comments History of Present Illness Details 58-year-old male presents for an extende d physical exam. He notes that he has been taking Lisinopril, cyclobenzaprine, and escitalopram as prescribed without adverse reactions. He reports anxiety and depressive symptoms. He notes that i have no patience. I worry about stuff too much. He notes that his symptoms waxes and wanes, worse when he does not have money and due to family issues. He reports passive SI which is attributes to being unemployed for the past 5 years, does not have enough money, and does not feel like the man he use to be. He survives from his disability checks. He denies active SI and states he does not have a plan. Acute issue(s) - None Past Medical History - Hypertension, hyperlipidemia, prediabe darrian, vitamin-D deficiency, CVA, low back pain, myopia and hyperopia (wears glasses), anxiety, depression, nicotine dependence, alcohol use disorder, alcohol withdrawal seizures, polysubstance abuse Social History - Smokes a pack of cigarettes daily and has been smoking x 30 yrs. Vapes nicotine occasionally. Drinks 18 pack of beer daily, have been drinking excessively for the past 20 yrs. He smokes and inhale crack cocaine and methamphetamine monthly, smokes cannabis 3 joints of cannabis weekly. He has been using crack cocaine x 30 years, methamphetamine x 5 years, and cannabis x 30-40 years - Has been making healthy dietary choice s. Exercises routinely. Reports poor sleep for the past 2 years, sleeps an average of 2-3 hours, snores, never had a sleep study Health maintenance - Last eye exam was a year ago with [facility]. New referral made - Last dental visit was over a year ago; encouraged to schedule an appointment with his dentist for routine dental care - Last Tdap was in 10/20/2023 - Has not been vaccinated for the flu ; declines vaccination - He has not been vaccinated for shingle s. Encouraged to get vaccinated for sh ingles. He may get the vaccines from the local pharmacy - He has never had a colonoscopy. Refer red to [facility] Medical History (Updated 09/30/24 @ 13:15 by Raffi Finney CNP) History of CVA (cerebrovascular accident) History of seizure due to alcohol withdrawal Alcohol abuse PFO (patent foramen ovale) Hypertension Hyperlipidemia Nicotine dependence, cigarettes, uncomplicated Back injury Depression Anxiety Neuropathy Headache Osteoporosis Arthritis Surgical History History of surgery on wrist History of ankle surgery Family History Mother Hypertension Cardiovascular disease Thyroid disorder Breast cancer No family history of mental disorder Father Cardiovascular disease Alcoholism High cholesterol Social History Housing: Apartment Patient Tobacco Use Status: Current everyday Tobacco user Tobacco use type: Cigarette Cigarette Packs Per Day: 1 Cigarettes Per Day: 20 Years Smoked: 40 e-Cigarette/Vaping Use: Former Use Second Hand Smoke Exposure: Yes service: Yes Current occupational status: disabled Current occupational exposures/hazards: No Cognitive needs: No Hearing needs: Yes Vision needs: Yes Questionnaire PHQ-9 Over the last 2 weeks, how often have you been bothered by any of the following problems? 1. Little interest or pleasure in doing things: more than half the days 2. Feeling down, depressed, or hopeless: several days 3. Trouble falling or staying asleep, or sleeping too much: more than half the days 4. Feeling tired or having little energy: nearly every day 5. Poor appetite or overeating: more than half the days 6. Feeling bad about yourself - or that you are a failure or have let yourself or your family down: more than half the days 7. Trouble concentrating on things, such as reading the newspaper or watching television: more than half the days 8. Moving or speaking so slowly that other people could have noticed. Or the opposite - being so fidgety or restless that you have been moving around a lot more than usual: several days 9. Thoughts that you would be better off or of hurting yourself in some way: several days Total score: 16 Depression Screening Interpretation: Positive Depression Screening Follow-up: Existing condition, In treatment and Change in Medication Depression Screening Done: Yes 70765 - PHQ-9 Billing: Yes Source: Developed by Drs. Irvin Solis, Pat Dang, John Khan and colleagues, with an educational ulysses from [employer]. Thrive Questionnaire Date Thrive assessed: 09/30/24 I am a: Patient What is your living situation today?: I have a steady place to live Within the past 12 months, did the food you bought not last and you didn't have the money to get more?: Often true Within the past 12 months, did you worry whether your food would run out before you got money to buy more?: Sometimes True Do you have trouble paying for medicines?: Yes Do you have trouble getting transportation to medical appointments?: Yes Do you have trouble paying your heating and electricity bill?: Yes Do you have trouble taking care of your child, family member or friend?: No Do you have trouble with day-to-day activities such as bathing, preparing meals, shopping, managing finances, etc.?: Yes Are you currently unemployed and looking for a job?: No Are you interested in more education?: No Please select the resources that you would like help with: None Currently or been in a relationship where the following occur: No concerns reported THRIVE Score: 4 AUDIT C Alcohol Use Questionnaire (AUDIT-C) 1. How often do you have a drink containing alcohol?: 4 or more times a week 2. How many drinks containing alcohol do you have on a typical day when you are drinking?: 10 or more 3. How often do you have six or more drinks on one occasion?: Daily or almost daily Total Score: 12 Score Reviewed/Action Taken: Yes ALLEGRA-7 AMB Questionnaire ALLEGRA-7 Date ALLEGRA - 7 assessed: 09/30/24 Feeling nervous, anxious, or on edge: 1 = Several days Not being able to stop or control worryin = Several days Worrying too much about different things: 1 = Several days Trouble relaxin = Several days Being so restless that it is hard to sit still: 1 = Several days Becoming easily annoyed or irritable: 2 = More than half the days Feeling afraid as if something awful might happen: 1 = Several days Total ALLEGRA-7 score (0-4 normal; 5-9 mild; 10-14 moderate; 15-21 severe): 8 Source: Developed by Drs. Irvin Solis, Pat Dang, John Khan and colleagues, with an educational ulysses from [employer]. ALLEGRA-7 Assessment Billing ALLEGRA-7 Assessment Tool: ALLEGRA-7 Assessment 94729 Review of Systems Const Details: Denies chills, Denies fatigue, Denies fever(s), Denies headache(s) and Denies weakness HEENT Denies change in vision, Denies dizziness, Denies headache(s), Denies hearing loss, Denies nasal congestion, Denies sinus pain, Denies sinus pressure and Denies sore throat Card Denies chest pain, Denies lightheadedness, Denies dyspnea and Denies other (palpitations) Resp Denies cough, Denies dyspnea and Denies wheezing GI Denies abdominal pain, Denies melena, Denies hematochezia, Denies change in bowel habits, Denies dyspepsia and Denies nausea Denies hematuria and Denies dysuria Musc Denies abnormal gait, Denies myalgias, Denies arthralgias, Denies numbness and Denies tingling Skin/Breast Denies rash, Denies unusual bruising and Denies wounds Neuro Denies abnormal gait, Denies dizziness, Denies headache(s), Denies memory loss, Denies numbness, Denies Sensory deficit (Neuro), Denies tingling and Denies weakness Psych Reports anxiety, Reports depression and Denies memory loss Endo Denies cold intolerance, Denies fatigue, Denies heat intolerance, Denies polydipsia and Denies polyuria Prince/Lymph Denies easy bleeding and Denies easy bruising Aller/Immun Denies wheezing Physical exam (Primary Care) Vital Signs: Last Vital Signs Temp 97.5 F 09/30/24 12:06 Pulse 113 H 09/30/24 12:06 Resp 16 09/30/24 12:06 BP 127/72 09/30/24 12:06 Pulse Ox 98 09/30/24 12:06 Oxygen Delivery Method Room Air 09/30/24 12:06 BMI result Body Mass Index 30.3 Tobacco/Smoking Status: Tobacco use Status Tobacco use date assessed 09/30/24 09/30/24 12:16 Patient Tobacco Use Status Current everyday Tobacco 09/30/24 12:02 Tobacco use type Cigarette 09/30/24 12:02 e-Cigarette/Vaping Use Former Use 09/30/24 12:02 PHQ-9: PHQ-9 Score PHQ-9: Total score 16 09/30/24 15:12 Depression Screening Interpretation: Positive Depression Screening Follow-up: Existing condition, In treatment and Change in Medication Thrive Assessment: Date of Thrive Assessment Date Thrive assessed 09/30/24 09/30/24 12:16 Currently or been in a relationship where the following occur: No concerns reported Const Other: General: no acute distress, well developed, alert and awake Nutritional Appearance: well nourished Orientation/consciousness: patient oriented x3 HENMT Head: Yes normocephalic and Yes atraumatic Ears: hearing grossly normal bilaterally and TM's normal bilaterally General nose exam: Normal external nose present and Normal nares present Mouth: Normal oral and palatal mucosa present and moist mucous membranes Teeth and gingiva: dentition normal Throat: Yes oropharynx normal Eyes Pupils: Equal, round and reactive pupils present and Pupil accommodation reflex normal EOM: EOMs intact bilaterally Neck Neck: Yes normal visual inspection, Yes no lymphadenopathy and Yes trachea midline Thyroid: Thyroid normal Carotids: no bruits Lymphatic: no lymphadenopathy noted Chest Chest palpation & inspection: normal inspection of the chest Resp Effort & Inspection: normal respiratory effort Auscultation: clear to auscultation bilaterally Cardio Rate: regular rate Rhythm: regular rhythm Heart sounds: S1 normal heart sound present, S2 normal heart sound present, no gallops, no murmurs and no rubs Bruits: no abdominal aortic bruits and no carotid bruits GI Palpation (GI): No Abdominal aortic bruit present, Soft to palpation, nontender, No hepatosplenomegaly present and No Rebound tenderness present Auscultation: normal bowel sounds General: Yes no CVA tenderness Back/Spine/Pelvis Back: no CVA tenderness Cervical Spine: cervical ROM normal and No Cervical spine tenderness Thoracic/Lumbar Spine: thoraco-lumbar ROM normal, No pain with thoraco-lumbar ROM, No thoracic spinal tenderness and No lumbar spinal tenderness Skin General: warm and dry. Normal skin color. Normal skin turgor Lesions: no lesions Rashes: no rashes Trauma: no lacerations or abrasions Wounds: no wounds Nails: normal Neuro General: patient oriented x3, gait normal and CN's II-XI intact bilaterally Cranial nerves: Yes Equal, round and reactive pupils present Cognition (Neuro): normal cognition Gait exam (Neuro): Normal gait present Motor exam (neuro): 5/5 motor strength present throughout Sensory Exam: No Sensory deficit (Neuro) Deep tendon reflexes (DTR's): Right patellar reflex intensity grade: 2+ and Left patellar reflex intensity grade: 2+ Extrem General: Yes normal to inspection, No edema and No calf tenderness Psych Appearance: grossly normal Affect: normal affect Attitude: cooperative Thought process: Normal thought process present Coding Level of Care Code Est Pt Level 5 (84645) Est Pt Prev Care 40-64y(35200) Diagnoses Normal physical examination, routine Z00.00 Primary hypertension I10 Hypertension type: primary hypertension Insomnia G47.00 Snoring R06.83 Alcohol use disorder F10.90 Polysubstance use disorder F19.90 Nicotine dependence F17.200 Anxiety and depression F41.9; F32.A Colon cancer screening Z12.11 Myopia H52.10 Hyperopia H52.00 Vaccine counseling Z71.85 Laboratory tests ordered as part of a complete physical exam (CPE) Z00.00 Additional Codes ALLEGRA-7 Assessment Billing - ALLEGRA-7 Assessment Tool: ALLEGRA-7 Assessment 31876 ([id number]) PHQ-9 - 32880 - PHQ-9 Billing: Yes ([id number]) Time Spent (min) 75 Assessment & Plan Assessment & Plan (1) Normal physical examination, routine: Code(s): Z00.00 - Encounter for general adult medical examination without abnormal findings Category: Medical Plan: No significant functional limitations noted. Healthy diet and routine exercise encouraged. Continue current treatment regimen. Perform lab work and follow-up for telehealth visit in 2-3 weeks. Return sooner with symptoms or concerns. Verbalized understanding and agreed with the treatment plan. (2) Hypertension: Code(s): I10 - Essential (primary) hypertension Category: Medical Qualifiers: Hypertension type: primary hypertension Qualified Code(s): I10 - Essential (primary) hypertension Plan: Blood pressure is 127/72, within goal of less than 140/90. Continue current treatment regimen. Low-sodium diet encouraged. Will continue to monitor. Verbalized understanding and agreed with the plan. (3) Insomnia: Code(s): G47.00 - Insomnia, unspecified Category: Medical Plan: Reports poor sleep for the past 2 years, sleeps an average of 2-3 hours, snores, never had a sleep study. Instructed on sleep hygiene. May take melatonin as needed. Referred to [facility] for a sleep study. Follow-up as needed. Verbalized understanding and agreed with the plan. (4) Snoring: Code(s): R06.83 - Snoring Category: Medical Plan: Plan as above. (5) Alcohol use disorder: Code(s): F10.90 - Alcohol use, unspecified, uncomplicated Category: Medical Plan: He drinks 18 pack of beer daily, and have been drinking excessively for the past 20 years. Instructed on the health risks and complications of excessive alcohol intake and encouraged to stop or limit his alcohol intake. No more than 2 drinks daily or 5 weekly. Referred to [facility] as requested for alcohol use disorder and polysubstance use disorder. Follow-up as needed. Verbalized understanding and agreed with the plan. (6) Polysubstance use disorder: Code(s): F19.90 - Other psychoactive substance use, unspecified, uncomplicated Category: Medical Plan: He smokes and inhale crack cocaine and methamphetamine monthly, smokes cannabis 3 joints of cannabis weekly. He has been using crack cocaine x 30 years, methamphetamine x 5 years, and cannabis x 30-40 years. Instructed on the health risks and complications of illicit drug use and cessation encouraged. Plan as above. (7) Nicotine dependence: Code(s): F17.200 - Nicotine dependence, unspecified, uncomplicated Category: Medical Plan: He smokes a pack of cigarettes daily and has been smoking for the past 30 years. He also vapes nicotine occasionally. Instructed on the health risks and complications of smoking and vaping nicotine; cessation encouraged. Nicotine patch ordered as requested; advised to use as prescribed. Instructed on the risks, benefits, and potential adverse reactions of the medication. Follow-up with symptoms or concerns. Verbalized understanding and agreed with the plan. (8) Anxiety and depression: Code(s): F41.9 - Anxiety disorder, unspecified; F32.A - Depression, unspecified Category: Medical Plan: He reports anxiety and depressive symptoms. He notes that i have no patience. I worry about stuff too much. He notes that his symptoms waxes and wanes, worse when he does not have money and due to family issues. He reports passive SI which is attributes to being unemployed for the past 5 years, does not have enough money, and does not feel like the man he use to be. He survives from his disability checks. He denies active SI and states he does not have a plan. PHQ-9 and ALLEGRA-7 scores revealed moderately severe depression and mild anxiety respectively. Will increase escitalopram to 20 mg daily; advised to take as prescribed. Will restart buspirone to target anxiety; advised to take as prescribed. Instructed on the risks, benefits, and potential adverse reactions of the medications. Follow-up in 2 weeks or sooner with worsening or new symptoms. Verbalized understanding and agreed with treatment plan. (9) Colon cancer screening: Code(s): Z12.11 - Encounter for screening for malignant neoplasm of colon Category: Medical Plan: He has never had a colonoscopy. Referred to [facility] for colonoscopy. (10) Myopia: Code(s): H52.10 - Myopia, unspecified eye Category: Medical Plan: Last eye exam was a year ago with [facility]. New ophthalmology referral made. (11) Hyperopia: Code(s): H52.00 - Hypermetropia, unspecified eye Category: Medical Plan: Plan as above. (12) Vaccine counseling: Code(s): Z71.85 - Encounter for immunization safety counseling Category: Medical Plan: He has not been vaccinated for shingles. Instructed on the importance of vaccinated for singles and and encouraged to get vaccinated for shingles. He may get the vaccines from the local pharmacy. Verbalized understanding and agreed with treatment plan. (13) Laboratory tests ordered as part of a complete physical exam (CPE): Code(s): Z00.00 - Encounter for general adult medical examination without abnormal findings Category: Medical Plan: Fasting labs ordered as part of a complete physical exam. Advised to fast for at least 10 hours before getting labs drawn. May drink water Verbalized understanding and agreed with treatment plan. Plan Total time spent caring for the patient today was 75 minutes. Time with patient was 50 minutes. 25 minutes spent spent before the visit reviewing the chart, and after the visit on documentation, reviewing laboratory results, diagnostic imaging, medications, performing a medically necessary evaluation, counseling on diagnoses, care coordination, ordering appropriate tests, ordering appropriate medications, review of tests performed by other providers, reporting test results with the patient, communication with other healthcare providers. Orders: Referrals Sleep Medicine Referral G47.00 - Insomnia, unspecified, R06.83 - Snoring Addiction Medicine Referral F10.90 - Alcohol use, unspecified, uncomplicated, F19.90 - Other psychoactive substance use, unspecified, uncomplicated Gastroenterology Referral Z12.11 - Encounter for screening for malignant neoplasm of colon Ophthalmology Referral H52.00 - Hypermetropia, unspecified eye, H52.10 - Myopia, unspecified eye Lung Cancer Screening Referral F17.200 - Nicotine dependence, unspecified, uncomplicated Medications: New escitalopram oxalate 20 mg PO DAILY 30 days 30 tabs 3RF nicotine 1 patch transdermal DAILY 6 weeks 42 ea 2RF Changed From aspirin 81 mg PO DAILY To aspirin 81 mg PO DAILY 90 days 90 tabs 3RF From thiamine HCl (vitamin B1) 50 mg PO DAILY To thiamine HCl (vitamin B1) 50 mg (1/2 x 100 mg) PO DAILY 30 days 15 tabs 3RF From folic acid 1 mg PO DAILY To folic acid 1 mg PO DAILY 30 days 30 tabs 3RF Refilled cyclobenzaprine 10 mg PO BID 30 days PRN 60 tabs 2RF muscle spasm atorvastatin 40 mg PO DAILY 90 days 90 tabs 1RF lisinopril 10 mg PO DAILY 30 days 30 tabs 3RF clopidogrel 75 mg PO DAILY 30 days 30 tabs 3RF Discontinued cholecalciferol (vitamin D3) Discontinued Reason: Patient no longer taking 50 mcg PO DAILY 30 days 30 tabs 3RF naproxen Discontinued Reason: Patient no longer taking 500 mg PO BID 30 days PRN 60 tabs 1RF pain escitalopram oxalate Discontinued Reason: Doctor's Order 10 mg PO DAILY 30 days 30 tabs 0RF
[2024-09-30 12:06] VITALS: BP 127/72; PULSE 113; RESP 16; TEMP 36.4; O2SAT 98; BMI 30.3
== END 2024-09-30 13:02 | disposition home or self-care (01) ==
LOC: HO.HMCFM 11:59
PROVIDERS: PCP Nurse Practitioner Family; Visit Provider Nurse Practitioner Family
DX: I10 Essential (primary) hypertension (principal); G47.00 Insomnia, unspecified; R06.83 Snoring; F10.90 Alcohol use, unspecified, uncomplicated; F19.90 Other psychoactive substance use, unspecified, uncomplicated; F17.200 Nicotine dependence, unspecified, uncomplicated; F41.9 Anxiety disorder, unspecified; F32.A Depression, unspecified; Z12.11 Encounter for screening for malignant neoplasm of colon; H52.10 Myopia, unspecified eye; H52.00 Hypermetropia, unspecified eye; Z71.85 Encounter for immunization safety counseling

== ENCOUNTER → 2024-09-30 11:59 | Outpatient (BNVA) | payer MEDICARE, SELFPAY | PROVIDERS: PCP Nurse Practitioner Family; Visit Provider Nurse Practitioner Family | DX: Z00.01 Encounter for general adult medical examination with abnormal findings (principal); I10 Essential (primary) hypertension; G47.00 Insomnia, unspecified; R06.83 Snoring; F10.90 Alcohol use, unspecified, uncomplicated; F41.9 Anxiety disorder, unspecified; F32.A Depression, unspecified; H52.10 Myopia, unspecified eye; H52.00 Hypermetropia, unspecified eye; F17.200 Nicotine dependence, unspecified, uncomplicated; Z71.6 Tobacco abuse counseling | CPT/HCPCS: 96127; 99212 ==